=== PATIENT | male | born 1960 | race Caucasian/White ===

== ENCOUNTER → 2016-06-13 | Outpatient (CLI) | payer OTHER ==
[~2016-06-13] MED LIST: AMOX875T PO; ASCO1CAP3 PO; ASPCH81X PO; ASPI-461 PO; CHOL100010 PO; CYAN500T13 PO; GLUCTAB7 PO; LISI-729 PO; METFTAB PO
--- NOTE | 2016-06-13 16:25 | DIAGNOSTIC IMAGING REPORT ---
LEFT FEMUR 2 VIEWS ROUTINE CLINICAL HISTORY: Musculoskeletal pain of left thigh COMPARISON STUDY: None. FINDINGS: No fracture or dislocation within the left femur. Small marginal osteophytes at the left hip consistent with mild degenerative change. Soft tissues are unremarkable. The visualized pelvic bones are intact. No radiopaque foreign bodies. There is also also mild degenerative changes within the left knee. IMPRESSION: Mild degenerative changes within the left hip and left knee. No fractures within the left femur. Electronically signed by: Mango Machado M.D. 06/13/2016 4:24 PM Dictated Date/Time: 06/13/2016 4:22 PM
== END | disposition home or self-care (01) ==
LOC: C.RADPV 16:01
PROVIDERS: ATTEND Family Medicine
DX: M79.652 Pain in left thigh (principal)

== ENCOUNTER → 2016-07-13 | Outpatient (CLI) | payer OTHER ==
[2016-07-13 12:57] LABS: ESTIMATED AVERAGE GLUCOSE 123 mg/dl; HA1C FLAG Normal (Normal)
[2016-07-13 12:59] LABS: RATIO 10.1 mcg/mg (0-30.0)
[2016-07-13 13:03] LABS: CHOLESTEROL/HDL RATIO 5.2
== END | disposition home or self-care (01) ==
LOC: C.LABPVFM 08:45
PROVIDERS: ATTEND Family Medicine
DX: E11.9 Type 2 diabetes mellitus without complications (principal); E78.1 Pure hyperglyceridemia

== ENCOUNTER → 2016-07-15 | Outpatient (CLI) | payer OTHER ==
--- NOTE | 2016-07-15 09:54 | DIAGNOSTIC IMAGING REPORT ---
L-SPINE MIN 4 VIEWS ROUTINE CLINICAL HISTORY: Back pain and left hip numbness COMPARISON STUDY: No previous studies for comparison. FINDINGS: There is an ovoid opacity within the left upper quadrant, possibly representing an enteric pill fragment. No acute fractures are visualized. There are moderate multilevel degenerative changes. There is posterior osteophytic spurring at the L2-3 and L3-4 levels. There is moderate disc space narrowing at the L5-S1 level. IMPRESSION: Moderate multilevel degenerative change. No acute fractures or subluxations identified. No destructive lesions are visualized on conventional radiographic imaging Electronically signed by: Shayne Ramirez M.D. 07/15/2016 9:53 AM Dictated Date/Time: 07/15/2016 9:52 AM
== END | disposition home or self-care (01) ==
LOC: C.RADPV 09:16
PROVIDERS: ATTEND Family Medicine
DX: M54.9 Dorsalgia, unspecified (principal); E11.9 Type 2 diabetes mellitus without complications; Z87.891 Personal history of nicotine dependence; E78.1 Pure hyperglyceridemia

== ENCOUNTER → 2016-08-31 | Day surgery (SDC) | payer OTHER ==
[2016-08-15 14:54] VITALS: Ht 174 cm; Wt 97.7 kg
[~2016-08-31] VITALS: Ht 174 cm; Wt 97.7 kg
[~2016-08-31] MED LIST changes: -AMOX875T PO; -ASPI-461 PO; +LIDOCAINE HCL 2% 2 ML VIAL (20MG/ML) ONE; +MIDAZOLAM HCL 1 MG/ML 2ML VIAL ONE; +OMEG10007 PO; +ONDANSETRON INJ 2 MG/ML 2 ML VIAL ONE; +PROPOFOL IV EMULSION 10 MG/ML 20 ML VIAL IV ONE; +SODIUM CHLORIDE 0.9% 500ML 500 ML IV ONE
[2016-08-31 09:10] VITALS: TEMP 37.2
--- NOTE | 2016-08-31 09:14 | Endo History and Physical ---
History & Physical Date of Service: Aug 31, 2016. Chief Complaint: screening Referring Physician: Dr. Garcia History of Present Illness 56 yo CM who presents for screening colonoscopy. Past Surgical History Hx Cardiac Surgery: No Hx Internal Defibrillator: No Hx Pacemaker: No Hx Abdominal Surgery: No Hx of Implantable Prosthesis: No Hx Post-Op Nausea and Vomiting: No Hx Cancer Surgery: No Hx Thoracic Surgery: No Hx Orthopedic: No Hx Urinary Tract Surgery: No Family History None Social History Smoking Status: Former Smoker Hx Substance Use: No Hx Alcohol Use: Yes (OCCASIONALLY) Allergies Coded Allergies: NO KNOWN DRUG ALLERGIES (Verified Allergy, Unknown, ., 08/15/16) Current Medications Reported Home Medications Medications Dose Route/Sig Max Daily Dose Days Date Category Aspirin Chewable (Aspirin) 81 Mg Chew 81 Mg PO QAM 08/15/16 Reported Zestril (Lisinopril) 5 Mg Tab 5 Mg PO QAM 08/15/16 Reported Glucophage Ext Rel (Metformin HCl) 500 Mg Tab 1 Tab PO BID 90 08/15/16 Reported Vitamin B12 500MCG (Cyanocobalamin) 500 Mcg Tab 500 Mcg PO QAM 01/29/14 Reported Glucosamine Chondroitin (Vtmssftcmyy-Geqntwmnrfd-Wxn C-) 1 Tab Tab 1 Tab PO BID 01/29/14 Reported Vitamin C (Ascorbic Acid) 500 Mg Cap 1 Cap PO QAM 01/29/14 Reported Vitamin D (Cholecalciferol) 1,000 Inter.unit Tab 1,000 Inter.unit PO QAM 01/29/14 Reported Vital Signs Weight (Kilograms): 97.73 Height (Feet): 5 Height (Inches): 8.5 Date Time Temp Pulse Resp B/P Pulse Ox O2 Delivery O2 Flow Rate FiO2 08/31/16 09:10 37.2 69 20 134/76 97 Room Air Physical Exam General Appearance: WD/WN, no apparent distress Respiratory/Chest: Auscultation: breath sounds normal Cardiovascular: Heart Auscultation: RRR Abdomen: Bowel Sounds: normal Inspection & Palpation: soft, non-distended, no tenderness, guarding & rebound Assessment and Plan Assessment: 56 yo CM who presents for screening colonoscopy. Plan: Proceed with colonoscopy.
--- NOTE | 2016-08-31 09:53 | GI REPORT ---
Procedure Date: 08/31/2016 9:18 AM Procedure: Colonoscopy Indications: Screening for colorectal malignant neoplasm Medicines: Monitored Anesthesia Care Complications: No immediate complications. Estimated Blood Loss: Estimated blood loss: none. Procedure: Pre-Anesthesia Assessment: - Prior to the procedure, a History and Physical was performed, and patient medications and allergies were reviewed. The patient's tolerance of previous anesthesia was also reviewed. The risks and benefits of the procedure and the sedation options and risks were discussed with the patient. All questions were answered, and informed consent was obtained. Prior Anticoagulants: The patient has taken aspirin, last dose was 1 day prior to procedure. ASA Grade Assessment: II - A patient with mild systemic disease. After reviewing the risks and benefits, the patient was deemed in satisfactory condition to undergo the procedure. After I obtained informed consent, the scope was passed under direct vision. Throughout the procedure, the patient's blood pressure, pulse, and oxygen saturations were monitored continuously. The scope was introduced through the anus and advanced to the terminal ileum. The colonoscopy was performed without difficulty. The patient tolerated the procedure well. The quality of the bowel preparation was good. The terminal ileum, ileocecal valve, appendiceal orifice, and rectum were photographed. Findings: Six pedunculated and sessile polyps were found in the rectum, in the ascending colon and in the cecum. The polyps were 4 to 15 mm in size. These polyps were removed with a hot snare. Resection and retrieval were complete. To prevent bleeding after the polypectomy, two hemostatic clips were successfully placed (MR conditional). There was no bleeding at the end of the procedure. Scattered small-mouthed diverticula were found in the entire colon. Non-bleeding internal hemorrhoids were found during retroflexion. The hemorrhoids were small. Impression: - Six 4 to 15 mm polyps in the rectum, in the ascending colon and in the cecum, removed with a hot snare. Resected and retrieved. Clips (MR conditional) were placed. - Diverticulosis in the entire examined colon. - Non-bleeding internal hemorrhoids. Recommendation: - Resume previous diet. - Continue present medications. - Repeat colonoscopy for surveillance based on pathology results. - Return to primary care physician as previously scheduled. Rodriguez Loza DO 08/31/2016 9:52:30 AM This report has been signed electronically. Note Initiated On: 08/31/2016 9:18 AM I attest to the content of the Intraoperative Record and orders documented therein, exceptions below
--- NOTE | 2016-08-31 10:13 | Anesthesiology Progress Note ---
Anesthesia Post Op Note Date & Time Aug 31, 2016 at 10:12 Vital Signs Pain Intensity: 0 Vital Signs Past 12 Hours Date Time Temp Pulse Resp B/P Pulse Ox O2 Delivery O2 Flow Rate FiO2 08/31/16 10:09 69 20 125/85 98 Room Air 08/31/16 09:54 72 20 121/76 95 Room Air 08/31/16 09:10 37.2 69 20 134/76 97 Room Air Notes Mental Status: alert / awake / arousable, participated in evaluation Pt Amnestic to Procedure: Yes Nausea / Vomiting: adequately controlled Pain: adequately controlled Airway Patency, RR, SpO2: stable & adequate BP & HR: stable & adequate Hydration State: stable & adequate Anesthetic Complications: no major complications apparent
[2016-08-31 10:24] VITALS: BP 121/91; PULSE 65; O2SAT 95
--- NOTE | 2016-08-31 10:24 | Discharge Instructions ---
Endoscopy Patient Instructions Date / Procedure(s) Performed Aug 31, 2016. Colonoscopy Allergy Information Coded Allergies: NO KNOWN DRUG ALLERGIES (Verified Allergy, Unknown, ., 08/15/16) Discharge Date / Findings Aug 31, 2016. Colon polyps Rectal polyps Diverticulosis Internal hemorrhoids Medication Instructions Stopped Medication(s): took glucophage and ASA yesterday OK to resume all medications today as prescribed Reported Home Medications Medications Dose Route/Sig Max Daily Dose Days Date Category Aspirin Chewable (Aspirin) 81 Mg Chew 81 Mg PO QAM 08/15/16 Reported Zestril (Lisinopril) 5 Mg Tab 5 Mg PO QAM 08/15/16 Reported Glucophage Ext Rel (Metformin HCl) 500 Mg Tab 1 Tab PO BID 90 08/15/16 Reported Vitamin B12 500MCG (Cyanocobalamin) 500 Mcg Tab 500 Mcg PO QAM 01/29/14 Reported Glucosamine Chondroitin (Ozbzjmgvdtf-Wprcszcjpzk-Goo C-) 1 Tab Tab 1 Tab PO BID 01/29/14 Reported Vitamin C (Ascorbic Acid) 500 Mg Cap 1 Cap PO QAM 01/29/14 Reported Vitamin D (Cholecalciferol) 1,000 Inter.unit Tab 1,000 Inter.unit PO QAM 01/29/14 Reported Provider Instructions Activity Restrictions - No exercising or heavy lifting for 24 hours. - Do not drink alcohol the day of the procedure. - Do not drive a car or operate machinery until the day after the procedure. - Do not make any important decisions or sign important papers in 24 hours after the procedure. Following Day: - Return to full activity which may include returning to work/school. Diet Start your diet with liquids and light foods (jello, soup, juice, toast). Then eat your usual diet if not nauseated. Treatment For Common After Affects For mild abdominal pain, bloating, or excessive gas: - Rest - Eat lightly - Lie on right side Follow-Up Information Follow-up with Dr. Garcia as scheduled Anesthesia Information What You Should Know You have had a procedure that required some medicine to reduce anxiety and discomfort. This treatment is called moderate sedation. After receiving the treatment, you may be sleepy, but you will be able to breathe on your own. The effects of the treatment may last for several hours. Follow these instructions along with Activity/Diet recommendations noted above: * Do NOT do anything where dizziness or clumsiness would be dangerous. * Rest quietly at home today, then you can be up and about tomorrow. * Have a responsible person stay with you the rest of today. * You may have had an I.V. today. If so, you may take the dressing off later today. Recommendations Call your doctor if: * Trouble breathing * Continuous vomiting for more than 24 hours * Temperature above 101 degrees * Severe abdominal pain or bloating * Pain not relieved by pain medicine ordered * There is increased drainage or redness from any incision * A large amount of rectal bleeding greater than 2-3 tablespoons. (If you had a polyp/s removed or have hemorrhoids, a small amount of blood - from the rectum is to be expected.) * You have any unanswered questions or concerns. IN THE EVENT OF A SERIOUS EMERGENCY, GO TO THE NEAREST EMERGENCY ROOM Your discharge instructions were prepared by provider Rodriguez Loza. Patient Instructions Signature Page Georges Collazo Patient (or Guardian) Signature/Date: I have read and understand the instructions given to me by my caregivers. Caregiver/RN/Doctor Signature/Date: The above-named patient and/or guardian has received patient instructions on this date. + Original Patient Signature Page (only) stays with chart. Please make copy for patient.
== END | disposition home or self-care (01) ==
LOC: C.GI 08:42
PROVIDERS: ATTEND Internal Medicine
DX: Z12.11 Encounter for screening for malignant neoplasm of colon (principal); D12.8 Benign neoplasm of rectum; D12.2 Benign neoplasm of ascending colon; D12.0 Benign neoplasm of cecum; K57.90 Diverticulosis of intestine, part unspecified, without perforation or abscess without bleeding; K64.8 Other hemorrhoids; E11.9 Type 2 diabetes mellitus without complications; Z87.891 Personal history of nicotine dependence; Z79.82 Long term (current) use of aspirin; Z68.32 Body mass index [BMI] 32.0-32.9, adult

== ENCOUNTER → 2017-01-23 | Outpatient (CLI) | payer OTHER ==
[~2017-01-23] MED LIST changes: -LIDOCAINE HCL 2% 2 ML VIAL (20MG/ML) ONE; -MIDAZOLAM HCL 1 MG/ML 2ML VIAL ONE; -OMEG10007 PO; -ONDANSETRON INJ 2 MG/ML 2 ML VIAL ONE; -PROPOFOL IV EMULSION 10 MG/ML 20 ML VIAL IV ONE; -SODIUM CHLORIDE 0.9% 500ML 500 ML IV ONE
[2017-01-23 12:56] LABS: ALT/SGPT 75 U/L (12-78); AST/SGOT 38 U/L (15-37); BLOOD UREA NITROGEN 19 mg/dl (7-18); BUN/CREATININE RATIO 21.4 (10-20); CALCIUM 8.5 mg/dl (8.5-10.1); CARBON DIOXIDE 29 mmol/L (21-32); CHLORIDE 103 mmol/L (98-107); CREATININE 0.89 mg/dl (0.60-1.40); ESTIMATED AVERAGE GLUCOSE 143 mg/dl; GLUCOSE 135 mg/dl (70-99); HA1C FLAG Normal (Normal); POTASSIUM 4.2 mmol/L (3.5-5.1); SODIUM 136 mmol/L (136-145)
[2017-01-23 12:59] LABS: ALB/GLOB RATIO 1.3 (0.9-2); ALKALINE PHOSPHATASE 44 U/L (45-117); CHOLESTEROL 144 mg/dl (0-200); CHOLESTEROL/HDL RATIO 5.1; HDL CHOLESTEROL 28 mg/dl; LDL CHOLESTEROL CALCULATED 57 mg/dl; TRIGLYCERIDES 293 mg/dl (0-150); VERY LOW DENSITY LIPOPROT CALC 59 mg/dl
== END | disposition home or self-care (01) ==
LOC: C.LABPVFM 09:15
PROVIDERS: ATTEND Family Medicine
DX: Z87.891 Personal history of nicotine dependence (principal); E11.9 Type 2 diabetes mellitus without complications; E78.1 Pure hyperglyceridemia; M54.9 Dorsalgia, unspecified

== ENCOUNTER → 2017-03-27 | Day surgery (SDC) | payer OTHER ==
[2017-03-16 08:51] VITALS: Ht 174 cm; Wt 99.1 kg
[~2017-03-27] VITALS: Ht 174 cm; Wt 99.1 kg
[~2017-03-27] MED LIST changes: +OMEG10007 PO; +SODIUM CHLORIDE 0.9% 500ML 500 ML IV ONE
--- NOTE | 2017-03-27 12:56 | Endo History and Physical ---
History & Physical Date of Service: Mar 27, 2017. Chief Complaint: History of colon polyps Referring Physician: Dr. Garcia History of Present Illness 56 yo CM who presents for colonoscopy secondary to history of colon polyps. Past Surgical History Hx Cardiac Surgery: No Hx Internal Defibrillator: No Hx Pacemaker: No Hx Abdominal Surgery: No Hx of Implantable Prosthesis: No Hx Post-Op Nausea and Vomiting: No Hx Cancer Surgery: No Hx Thoracic Surgery: No Hx Orthopedic: No Hx Urinary Tract Surgery: No Family History None Social History Smoking Status: Former Smoker Hx Substance Use: No Hx Alcohol Use: Yes (OCCASIONALLY) Allergies Coded Allergies: NO KNOWN DRUG ALLERGIES (Verified Allergy, Unknown, ., 03/16/17) Current Medications Reported Home Medications Medications Dose Route/Sig Max Daily Dose Days Date Category [place]-3 (Fish Oil) 1 Ea Cap 1 Cap PO QAM 03/16/17 Reported Vitamin D (Cholecalciferol) 1,000 Unit Tab 1 Tab PO QAM 03/16/17 Reported Aspirin Chewable (Aspirin) 81 Mg Chew 81 Mg PO QAM 08/15/16 Reported Zestril (Lisinopril) 5 Mg Tab 5 Mg PO QAM 08/15/16 Reported Glucophage Ext Rel (Metformin HCl) 500 Mg Tab 1 Tab PO BID 90 08/15/16 Reported Vitamin B12 500MCG (Cyanocobalamin) 500 Mcg Tab 500 Mcg PO QAM 01/29/14 Reported Glucosamine Chondroitin (Fzdpiarrunn-Pcpmrjwedxi-Lcy C-) 1 Tab Tab 1 Tab PO BID 01/29/14 Reported Vitamin C (Ascorbic Acid) 500 Mg Cap 1 Cap PO QAM 01/29/14 Reported Vital Signs Weight (Kilograms): 99.09 Height (Feet): 5 Height (Inches): 8.5 Physical Exam General Appearance: WD/WN, no apparent distress Respiratory/Chest: Auscultation: breath sounds normal Cardiovascular: Heart Auscultation: RRR Abdomen: Bowel Sounds: normal Inspection & Palpation: soft, non-distended, no tenderness, guarding & rebound Assessment and Plan Assessment: 56 yo CM who presents for colonoscopy secondary to history of colon polyps. Plan: Proceed with colonoscopy.
--- NOTE | 2017-03-27 14:21 | Discharge Instructions ---
Endoscopy Patient Instructions Date / Procedure(s) Performed Mar 27, 2017. Colonoscopy Allergy Information Coded Allergies: NO KNOWN DRUG ALLERGIES (Verified Allergy, Unknown, ., 03/16/17) Discharge Date / Findings Mar 27, 2017. Diverticulosis Internal hemorrhoids Medication Instructions Stopped Medication(s): 03/25/17 ASPIRIN OK to resume all medications today as prescribed Reported Home Medications Medications Dose Route/Sig Max Daily Dose Days Date Category [place]-3 (Fish Oil) 1 Ea Cap 1 Cap PO QAM 03/16/17 Reported Vitamin D (Cholecalciferol) 1,000 Unit Tab 1 Tab PO QAM 03/16/17 Reported Aspirin Chewable (Aspirin) 81 Mg Chew 81 Mg PO QAM 08/15/16 Reported Zestril (Lisinopril) 5 Mg Tab 5 Mg PO QAM 08/15/16 Reported Glucophage Ext Rel (Metformin HCl) 500 Mg Tab 1 Tab PO BID 90 08/15/16 Reported Vitamin B12 500MCG (Cyanocobalamin) 500 Mcg Tab 500 Mcg PO QAM 01/29/14 Reported Glucosamine Chondroitin (Cxhriqeitxn-Lfldgareigj-Elh C-) 1 Tab Tab 1 Tab PO BID 01/29/14 Reported Vitamin C (Ascorbic Acid) 500 Mg Cap 1 Cap PO QAM 01/29/14 Reported Provider Instructions Activity Restrictions - No exercising or heavy lifting for 24 hours. - Do not drink alcohol the day of the procedure. - Do not drive a car or operate machinery until the day after the procedure. - Do not make any important decisions or sign important papers in 24 hours after the procedure. Following Day: - Return to full activity which may include returning to work/school. Diet Start your diet with liquids and light foods (jello, soup, juice, toast). Then eat your usual diet if not nauseated. Treatment For Common After Affects For mild abdominal pain, bloating, or excessive gas: - Rest - Eat lightly - Lie on right side Follow-Up Information Follow-up with DR. CAMPOVERDE as scheduled Anesthesia Information What You Should Know You have had a procedure that required some medicine to reduce anxiety and discomfort. This treatment is called moderate sedation. After receiving the treatment, you may be sleepy, but you will be able to breathe on your own. The effects of the treatment may last for several hours. Follow these instructions along with Activity/Diet recommendations noted above: * Do NOT do anything where dizziness or clumsiness would be dangerous. * Rest quietly at home today, then you can be up and about tomorrow. * Have a responsible person stay with you the rest of today. * You may have had an I.V. today. If so, you may take the dressing off later today. Recommendations Call your doctor if: * Trouble breathing * Continuous vomiting for more than 24 hours * Temperature above 101 degrees * Severe abdominal pain or bloating * Pain not relieved by pain medicine ordered * There is increased drainage or redness from any incision * A large amount of rectal bleeding greater than 2-3 tablespoons. (If you had a polyp/s removed or have hemorrhoids, a small amount of blood - from the rectum is to be expected.) * You have any unanswered questions or concerns. IN THE EVENT OF A SERIOUS EMERGENCY, GO TO THE NEAREST EMERGENCY ROOM Your discharge instructions were prepared by provider Rodriguez Loza. Patient Instructions Signature Page Georges Collazo Patient (or Guardian) Signature/Date: I have read and understand the instructions given to me by my caregivers. Caregiver/RN/Doctor Signature/Date: The above-named patient and/or guardian has received patient instructions on this date. + Original Patient Signature Page (only) stays with chart. Please make copy for patient.
--- NOTE | 2017-03-27 14:23 | Anesthesiology Progress Note ---
Anesthesia Post Op Note Date & Time Mar 27, 2017 at 14:23 Vital Signs Pain Intensity: 0 Vital Signs Past 12 Hours Date Time Temp Pulse Resp B/P (MAP) Pulse Ox O2 Delivery O2 Flow Rate FiO2 03/27/17 12:59 37.1 64 16 126/72 (90) 97 Room Air Notes Mental Status: alert / awake / arousable, participated in evaluation Pt Amnestic to Procedure: Yes Nausea / Vomiting: adequately controlled Pain: adequately controlled Airway Patency, RR, SpO2: stable & adequate BP & HR: stable & adequate Hydration State: stable & adequate Anesthetic Complications: no major complications apparent
--- NOTE | 2017-03-27 14:25 | GI REPORT ---
Procedure Date: 03/27/2017 1:58 PM Procedure: Colonoscopy Indications: Surveillance: History of numerous (> 10) adenomas on last colonoscopy (< 3 yrs) Medicines: Monitored Anesthesia Care Complications: No immediate complications. Estimated Blood Loss: Estimated blood loss: none. Procedure: Pre-Anesthesia Assessment: - Prior to the procedure, a History and Physical was performed, and patient medications and allergies were reviewed. The patient's tolerance of previous anesthesia was also reviewed. The risks and benefits of the procedure and the sedation options and risks were discussed with the patient. All questions were answered, and informed consent was obtained. Prior Anticoagulants: The patient has taken no previous anticoagulant or antiplatelet agents. ASA Grade Assessment: II - A patient with mild systemic disease. After reviewing the risks and benefits, the patient was deemed in satisfactory condition to undergo the procedure. After I obtained informed consent, the scope was passed under direct vision. Throughout the procedure, the patient's blood pressure, pulse, and oxygen saturations were monitored continuously. The scope was introduced through the anus and advanced to the terminal ileum. The colonoscopy was performed without difficulty. The patient tolerated the procedure well. The quality of the bowel preparation was good. The terminal ileum, the appendiceal orifice and the rectum were photographed. Findings: Multiple small-mouthed diverticula were found in the sigmoid colon. Non-bleeding internal hemorrhoids were found during retroflexion. The hemorrhoids were small. Impression: - Diverticulosis in the sigmoid colon. - Non-bleeding internal hemorrhoids. - No specimens collected. Recommendation: - Resume previous diet. - Continue present medications. - Repeat colonoscopy in 5 years for surveillance. - Return to primary care physician as previously scheduled. Rodriguez Loza DO 03/27/2017 2:25:37 PM This report has been signed electronically. Note Initiated On: 03/27/2017 1:58 PM I attest to the content of the Intraoperative Record and orders documented therein, exceptions below
[2017-03-27 14:50] VITALS: BP 124/86; PULSE 67; O2SAT 96
== END | disposition home or self-care (01) ==
LOC: C.GI 12:28
PROVIDERS: ATTEND Internal Medicine
DX: Z12.11 Encounter for screening for malignant neoplasm of colon (principal); K57.30 Diverticulosis of large intestine without perforation or abscess without bleeding; K64.8 Other hemorrhoids; Z86.010 Personal history of colon polyps; Z87.891 Personal history of nicotine dependence; Z79.82 Long term (current) use of aspirin; Z79.899 Other long term (current) drug therapy

== ENCOUNTER → 2017-07-26 | Outpatient (CLI) | payer OTHER ==
[~2017-07-26] MED LIST changes: -SODIUM CHLORIDE 0.9% 500ML 500 ML IV ONE
[2017-07-26 13:00] LABS: HEMOGLOBIN A1C 6.3 % (4.5-5.6)
[2017-07-26 13:04] LABS: ALBUMIN 4.3 gm/dl (3.4-5.0); ALT/SGPT 67 U/L (12-78); AST/SGOT 34 U/L (15-37); BLOOD UREA NITROGEN 21 mg/dl (7-18); CALCIUM 8.7 mg/dl (8.5-10.1); CARBON DIOXIDE 27 mmol/L (21-32); CHOLESTEROL 141 mg/dl (0-200); CREATININE 1.03 mg/dl (0.60-1.40); GLUCOSE 131 mg/dl (70-99); POTASSIUM 4.2 mmol/L (3.5-5.1); SODIUM 134 mmol/L (136-145)
[2017-07-26 13:08] LABS: ALKALINE PHOSPHATASE 42 U/L (45-117); LDL CHOLESTEROL CALCULATED 40 mg/dl; TOTAL PROTEIN 7.1 gm/dl (6.4-8.2)
== END | disposition home or self-care (01) ==
LOC: C.LABPVFM 09:05
PROVIDERS: ATTEND Family Medicine
DX: E11.9 Type 2 diabetes mellitus without complications (principal); E78.1 Pure hyperglyceridemia; R74.8 Abnormal levels of other serum enzymes